=== PATIENT | female | born 1990 | race Two or more races ===

== ENCOUNTER 2024-10-15 21:00 | Emergency (ER) | payer MEDICAID, OTHER ==
[~2024-10-15] VITALS: Ht 157.5 cm; Wt 66.6 kg
--- NOTE | 2024-10-15 21:53 | ED.PDOC ---
History of Present Illness HPI Comments 34 year old female presents to the ED for the c/c of LLQ ABD pain, Left sided flank pain, Fever, DURAN, and N/V. Pt states that her symptoms have been onset for the past 2x days with no alleviating factors at this time. Pt states that she went to her PCP recently and has told that she had a form of a Kidney infection. No other associated symptoms, modifiers, recent injuries or sick contacts present at this time. Time Seen by MD: 21:49 Reviewed Notes: Nurses Notes, Medications, Allergies Allergies: Coded Allergies: Penicillins (Verified Allergy, Unknown, 10/15/24) Home Meds Active Scripts Ondansetron Odt 4MG Tab (ZOFRAN PO) 4 Mg Tb, 4 MG PO TIDPRN PRN for 3 Days, #9 TAB ODT TAB-DISSOLVE IN MOUTH, THEN SWALLOW Prov:JANET PANTOJA MD 10/16/24 Acetaminophen (Acetaminophen Er) 650 Mg Tab, 650 MG PO TIDPRN PRN for 5 Days, #1 5 TAB Prov:JANET PANTOJA MD 10/16/24 Sulfamethoxazole W/Trimethopri (Bactrim Ds Tablet) 1 Tab Tb, 1 TAB PO BID for 7 Days, #14 TAB Prov:JANET PANTOJA MD 10/16/24 Information Source: Patient Mode of Arrival: Ambulatory Severity: Moderate Timing: Days Duration: Since onset, Days Prehospital treatment: None Vital Signs Vital Signs Date Time Temp Pulse Resp B/P (MAP) Pulse Ox O2 Delivery O2 Flow Rate FiO2 10/16/24 02:47 100 18 107/75 (86) 98 10/15/24 22:51 98.3 98.3 Physical Exam General: Awake, alert and oriented. Mild acute distress. Skin: Skin in warm, dry and intact. Appropriate color for ethnicity. HEENT: The head is normocephalic and atraumatic. Conjunctivae are clear without exudates or hemorrhage. Sclera is non-icteric. EOM are intact. No signs of nystagmus. Eyelids are normal in appearance without swelling or lesions. Oral mucosa is pink and moist Neck: The neck is supple with normal range of motion. No JVD. Cardiac: Heart rate and rhythm are normal. No murmurs, gallops, or rubs are auscultated. Respiratory: No signs of respiratory distress. Lung sounds are clear in all lobes bilaterally without rales, rhonchi, or wheezes. Abdominal: Abdomen is soft, without distention, guarding or rigidity. Bowel sounds are present and normoactive in all four quadrants. Left flank and CVA Tenderness noted. Extremities: Upper and lower extremities are atraumatic in appearance without deformity or edema. Neurological: The patient is awake, alert and oriented to person, place, and time with normal speech. Speech is clear. There is no facial asymmetry. Psychiatric: Appropriate mood and affect. Good judgement and insight. Review of Systems: REVIEW OF SYSTEMS: No fever, no chills, or fatigue HEENT: No sore throat, no earache, no congestion, no neck pain. Cardiac: No chest pain. No palpitations. Lungs: No shortness of breath, no cough. GI: + nausea, + vomiting, no diarrhea, no constipation, + abdominal pain : No dysuria, frequency, or urgency. No hematuria. Musculoskeletal: No joint pain , no joint swelling, no extremity edema. Skin: No rash, no itching. Neuro: + headache, no dizziness, no weakness Past Medical History PAST MEDICAL HISTORY: Denies Surgical History: Denies all surgeries HALF SECTION IRONER History: No Pertinent HALF SECTION IRONER History Family History Family History: Reviewed,noncontributory to illness, No family hx of Cancer, No family hx of DM, No family hx of Heart yin, No family hx of HTN, No family hx ofKidney yin, No family hx of Liver yin, No family hx of Lung yin, No family hx of Stroke Social History Smoker: Non-Smoker Alcohol: Denies ETOH Use Drugs: Denies Drug Use Lives In: Home Was a procedure done? Was a procedure done?: No Differential Dx Considerations may include: Differential diagnoses considered include: Abdominal aortic aneurysm, CA, esophageal rupture, intestinal obstruction, mesenteric ischemia, perforated viscus or solid organ rupture, CHF with hepatomegaly, pneumonia, abscess, appendicitis, biliary disease, diverticulitis, gastritis, gastroenteritis, hep atitis, hernia, inflammatory bowel disease, pancreatitis, peptic ulcer disease, urinary tract infection, ureteral colic, constipation, GERD, irritable syndrome, abdominal wall pain, nonspecific abdominal pain, herpes zoster, nephrolithiasis. Also ruptured ectopic , ovarian torsion/cyst, tubo-ovarian abscess, PID, endometriosis, mittleschmerz. X-Ray, Labs, Meds, VS Vital Signs Date Time Temp Pulse Resp B/P (MAP) Pulse Ox O2 Delivery O2 Flow Rate FiO2 10/16/24 02:47 100 18 107/75 (86) 98 10/15/24 22:51 98.3 92 16 107/59 (75) 100 98.3 Lab Test 10/15/24 22:30 10/15/24 22:05 Range/Units Urine Color Light-orange Yellow Urine Clarity Ex.turbid Clear Urine pH 5.5 5.0-9.0 Urine Specific [place] 1.010 1.001-1.035 Urine Protein 1+ H Negative Urine Ketones Negative Negative Urine Blood 2+ H Negative /uL Urine Nitrite Negative Negative Urine Bilirubin Negative Negative Urine Urobilinogen Normal Negative mg/dL Urine Leukocyte Esterase 3+ Negative /uL Urine RBC 5 0 - 4 /hpf Urine WBC Clumps Present None Seen /hpf Urine Microscopic WBC 661 H 0-5 /HPF Urine Squamous Epithelial Cells Mod <5 /hpf Urine Bacteria Few H None Seen /hpf Urine Glucose Normal Normal mg/dL Urine Test Negative Negative White Blood Count 11.6 H 4.4-10.8 10^3/uL Red Blood Count 3.92 L 4.0-5.20 10^6/uL Hemoglobin 11.9 L 12.2-16.2 g/dL Hematocrit 34.4 L 36.0-46.0 % Mean Corpuscular Volume 87.8 80.0-100.0 fL Mean Corpuscular Hemoglobin 30.4 28.0-32.0 pg Mean Corpuscular Hemoglobin Concent 34.6 32.0-36.0 g/dL Red Cell Distribution Width 14.8 H 11.8-14.3 % Platelet Count 272 140-450 10^3/uL Mean Platelet Volume 8.5 6.9-10.8 fL Neutrophils (%) (Auto) 76.3 37.0-80.0 % Lymphocytes (%) (Auto) 9.3 L 10.0-50.0 % Monocytes (%) (Auto) 14.1 H 0.0-12.0 % Eosinophils (%) (Auto) 0.1 0.0-7.0 % Basophils (%) (Auto) 0.2 0.0-2.0 % Neutrophils # (Auto) 8.9 H 1.6-8.6 10 ^3/uL Lymphocytes # (Auto) 1.1 0.4-5.4 10 ^3/uL Monocytes # (Auto) 1.6 H 0-1.3 10 ^3/uL Eosinophils # (Auto) 0 0-0.8 10 ^3/uL Basophils # (Auto) 0 0-0.2 10 ^3/uL Nucleated Red Blood Cells 0.0 % Sodium Level 136 136-145 mmol/L Potassium Level 3.7 3.5-5.1 mmol/L Chloride Level 104 98-107 mmol/L Carbon Dioxide Level 23 20-31 mmol/L Anion Gap 9 5-15 Blood Urea Nitrogen 8 L 9-23 mg/dL Creatinine 0.81 0.550-1.02 mg/dL Glomerular Filtration Rate Calc 98 >90 mL/min BUN/Creatinine Ratio 9.9 L 10.0-20.0 Serum Glucose 106 74-106 mg/dL Calcium Level 9.9 8.7-10.4 mg/dL Lipase 30 12-53 U/L Current Medications Medications (Trade) Dose Ordered Sig/Lula Route Start Time Stop Time Status Last Admin Trimethoprim/ Sulfamethoxazole (Bactrim Ds Tablet) 1 tab ONCE ONCE PO 10/16/24 02:15 10/16/24 02:16 DC 10/16/24 02:44 PATIENT: KEREN IRENE ACCT: [id number] UNIT: [id number] : 1990 LOC: ER ROOM / BED: / AGE / SEX: 34 / F ADM STATUS: REG ER SERVICE 754 ORDERING PHYSICIAN: JANET PANTOJA MD PROCEDURE(s): ABPL - CT AB PEL WO CON-NO ORAL OR IV REASON: Left flank pain ORDER NUMBER(s): [id number], ACCESSION NUMBER(s): [id number] Exam: CT CT AB PEL WO CON-NO ORAL OR IV History: Left flank pain Comparison Study: None Technique: Multidetector spiral CT of the abdomen was performed from lung bases to pubic symphysis. Imaging was performed without IV contrast. Axial, coronal and sagittal multiplanar reformats were obtained from the axial data set by the technologist. Radiation Dose : 1. Abdomen/Pelvis: CTDIvol 5.25 mGy, DLP 263.29 mGy*cm. Findings: Evaluation of solid organs is limited due to lack of intravenous contrast use. Lung Bases: No acute or significant lung base finding. Normal heart size. No pleural or pericardial effusion. Liver: The liver is normal in size. No focal lesions. Gallbladder and Biliary Tree: Unremarkable Spleen: Unremarkable Pancreas: The pancreas is grossly normal in appearance. Adrenal Glands: Unremarkable Kidneys: Kidneys are grossly normal without calculi or hydronephrosis. 1.9 cm renal cortical cysts within the right inferior pole and left interpolar kidney. Bladder: Grossly unremarkable for degree of distention. Bowel: The stomach is grossly normal in appearance. Small bowel and colon are normal in caliber and distribution. The appendix is normal. Ascites: Absent Lymphadenopathy: No mesenteric, retroperitoneal or periportal lymphadenopathy. Abdominal Wall and Mesentery: Unremarkable. Vasculature: The visualized abdominal aorta is normal in size and caliber. Evaluation of abdominal and pelvic vessels is limited due to lack of intravenous contrast. Pelvic Organs: Unremarkable Musculoskeletal: No aggressive focal bony lesions, acute fractures or dislocation. IMPRESSION: 1. No acute abdominal or pelvic findings. Time of 1ST Reevaluation: 22:20 Reevaluation 1ST: Unchanged Patient Education/Counseling: Need For Follow Up Family Education/Counseling: Need For Follow Up Departure 1 Departure Time of Disposition: 02:04 Impression: Primary Impression: Flank pain Additional Impression: Urinary tract infection Disposition: 01 HOME / SELF CARE / HOMELESS Condition: Stable Additional Instructions: INSTRUCCIONES DE CAROL DE Urgencias Instrucciones: Shaila atentamente todas las instrucciones proporcionadas en jose ramon paquete. Aunque le hayan dado el carol del Departamento de Emergencias, esto no significa que tenga un "certificado de buena bell". [] Hoy no se duran realizado ningn diagnstico definitivo para crista sntomas. Es posible que ests en proceso de desarrollar chandu enfermedad grave. Es por eso que debe regresar al servicio de urgencias sin falta si presenta algn sntoma nuevo o que empeora (especialmente si crista sntomas incluyen dolor en el pecho, dificultad para respirar, dolor abdominal, fiebre, dolor de philip, confusin, dificultad para los o caminar). Tambin es muy importante que consulte a un mdico de atencin primaria dentro de los prximos 3 a 5 chavarria para realizar un seguimiento. Si no puede conseguir chandu james, regrese al servicio de urgencias para chandu nueva evaluacin. Educacin para el paciente: Infecciones de las vas urinarias en adultos (Conceptos Bsicos) ? Riones Son dos rganos con forma de frijol que filtran la dmitry para producir orina. ? Vejiga Es un rgano con forma de globo que almacena la orina. ? Urteres Son dos tubos que llevan la orina desde los riones a la vejiga. ? Uretra Es el tubo que lleva la orina desde la vejiga al exterior del cuerpo. Las infecciones en la vejiga son ms comunes que las infecciones en los riones. Se producen cuando entran bacterias en la uretra y se desplazan hacia arriba, hasta la vejiga. El trmino mdico para referirse a chandu infeccin en la vejiga es "cistitis". La mayora de las veces, cuando las personas hablan de chandu infeccin de las vas urinarias, se refieren a chandu infeccin de la vejiga. ? Las infecciones de rin ocurren cuando las bacterias se desplazan incluso ms arriba, hasta los riones. El trmino mdico para referirse a chandu infeccin en los riones es ? Tanto las infecciones en la vejiga radha en los riones son ms comunes en las personas de sexo femenino que en las de sexo masculino. El riesgo de infecciones de las vas urinarias tambin es mayor en personas que tienen un catter urinario. Un catter es un tubo dixon y flexible que drena orina de la vejiga. Podra usarse en personas hospitalizadas que no pueden orinar de manera normal. Cules son los sntomas de chandu infeccin en la vejiga? Los sntomas son, entre otros: Cules son los sntomas de chandu infeccin en el rin? Los sntomas de chandu infeccin en el rin pueden incluir los mismos sntomas urinarios que se presentan con chandu infeccin en la vejiga. Adems, las infecciones en el rin pueden causar: Es necesario que me realice pruebas? Cristian vez. Si piensa que podra tener chandu infeccin de las vas urinarias, llame a appiah mdico o enfermero. En ocasiones, puede determinar si usted tiene chandu infeccin de las vas urinarias con solo conocer crista sntomas. [place] mdico o enfermero podra hacerle chandu simple prueba de orina en el consul torio. Tambin es posible que le sonny chandu prueba de orina ms compleja para detectar bacterias. "pielonefritis". Es ms grave que chandu infeccin de la vejiga, y puede provocar otros problemas graves si no se trata adecuadamente. ? Dolor o ardor al orinar ? Necesidad de orinar con frecuencia ? Necesidad de orinar en forma repentina o urgente ? Dmitry en la orina ? Fiebre ? Dolor de espalda ? Nuseas o vmitos [employer] se tratan las infecciones de las vas urinarias? La mayora de las infecciones de las vas urinarias se tratan con pldoras de antibiticos. Actan matando los grmenes que causan la infeccin. Crista sntomas deberan mejorar al da siguiente de estar tomando antibiticos, cate debe terminar todas las pldoras. De lo contrario, la infeccin podra regresar. Si es necesario, tambin puede casimiro chandu medicina para anestesiar appiah vejiga. Esta medicina disminuye el dolor que causan las infecciones de las vas urinarias. Tambin reduce el deseo de orinar. Qu pasa si sufro infecciones frecuentes en la vejiga? Keith, consulte a appiah mdico o enfermero para verificar si realmente se trata de infecciones en la vejiga. Los sntomas de chandu infeccin en la vejiga pueden ser causados por otras cosas. El mdico o enfermero querr los si esos problemas pueden estar causando crista sntomas. Si appiah mdico confirma que usted tiene infecciones frecuentes, hay cosas que puede hacer para evitarlas. Por ejemplo: Otras cosas que podran ser tiles son: Si tiene chandu infeccin en la vejiga, probablemente tenga que casimiro antibiticos iker 3 a 7 chavarria. ? Si tiene chandu infeccin en los riones, probablemente necesite casimiro antibiticos ms tiempo. Algunas personas deben tomarlos iker 10 chavarria. Si tiene chandu infeccin en los riones, tambin es posible que necesite recibir tratamiento en el hospital. ? ? Beber ms lquido [place] puede ayudar a prevenir las infecciones en la vejiga. Estrgeno vaginal Si ya duran tenido la menopausia, el mdico podra sugerir jose ramon tratamiento. El estrgeno vaginal viene en forma de crema o anillo flexible que se coloca en la vagina. Puede ayudar a prevenir las infecciones en la vejiga. ? Evitar los espermicidas (cremas o geles que ramin el esperma) Los espermicidas son un mtodo de planificacin familiar. Al parecer, aumentan el riesgo de tener infecciones en la vejiga para algunas personas de sexo femenino, especialmente en aquellas que usan un ? Si tiene muchas infecciones en la vejiga y los mtodos anteriores no nixon dado resultado, hable con appiah mdico sobre qu ms puede hacer para prevenir las infecciones. Casimiro un antibitico todos los chavarria o despus de tener relaciones sexuales puede ayudar a prevenir infecciones en la vejiga. Sin embargo, el uso de antibiticos a rustam plazo tiene desventajas, por lo que generalmente los mdicos keith sugieren otros mtodos, radha por ejemplo: Pueden otros productos prevenir las infecciones en la vejiga? Algunas personas se preguntan sobre otros productos "naturales" que dicen ayudar a prevenir las infecciones en la vejiga, radha pldoras de probiticos, vitamina Cy D- manosa. No se cuenta con chandu prueba firme de que estos productos den resultado. Sin embargo, tampoco hay pruebas claras de que cecilio perjudiciales. Si tiene preguntas sobre estos u otros productos, hable con appiah mdico o enfermero. Si usa espermicidas y tiene muchas infecciones en la vejiga, podra ser conveniente que cambie a otro mtodo de planificacin familiar. Orinar despus de tener relaciones sexuales Algunos mdicos piensan que esto ayuda a expulsar los grmenes que pueden boom ingresado a la vejiga iker la relacin sexual. No hay evidencia de que esto funcione, cate tampoco puede hacer mela. ? Metenamina (brea comercial: Hiprex) Es chandu pldora que se karoline todos los chavarria. Modifica la orina para dificultar el crecimiento de bacterias. Funciona [place] turpin mahnaz radha los antibiticos para prevenir infecciones en la vejiga. ? Jugo de arndanos u otros derivados del arndano Podran ayudar a prevenir o tratar las infecciones en la vejiga, cate los mdicos no saben cul es la mejor dosis. e-Prescriptions Ondansetron Odt 4MG Tab (ZOFRAN PO) 4 Mg Tb 4 MG PO TIDPRN PRN for 3 Days, #9 TAB ODT TAB-DISSOLVE IN MOUTH, THEN SWALLOW Prov: JANET PANTOJA MD 10/16/24 Acetaminophen (Acetaminophen Er) 650 Mg Tab 650 MG PO TIDPRN PRN for 5 Days, #15 TAB Prov: JANET PANTOJA MD 10/16/24 Sulfamethoxazole W/Trimethopri (Bactrim Ds Tablet) 1 Tab Tb 1 TAB PO BID for 7 Days, #14 TAB Prov: JANET PANTOJA MD 10/16/24 Comments Patient well-appearing, nontoxic. Advised prompt follow-up with PCP, return to the ED with any new, worsening or concerning symptoms. Critical Care Note Critical Care Time?: No Stability Stability form required: No Heart Score Heart Score: Heart Score Response (Comments) Value History N/A 0 EKG N/A 0 Age N/A 0 Risk Factors N/A 0 Troponin N/A 0 Total 0 I personally scribed for JANET PANTOJA MD ([email or web address]) on 10/15/24 at 21:53. Electronically submitted by Julius Ahn ([email or web address]). I personally scribed for JANET PANTOJA MD ([email or web address]) on 10/16/24 at 01:58. Electronically submitted by Julius Ahn [email or web address]). JANET PANTOJA MD Oct 15, 2024 21:53
[2024-10-15 22:26] LABS: Basophils # (auto) 0 10 ^3/uL (0-0.2); Basophils % (auto) 0.2 % (0.0-2.0); Eosinophils # (auto) 0 10 ^3/uL (0-0.8); Eosinophils % (auto) 0.1 % (0.0-7.0); Hematocrit 34.4 % (36.0-46.0); Hemoglobin 11.9 g/dL (12.2-16.2); Lymphocytes # (auto) 1.1 10 ^3/uL (0.4-5.4); Lymphocytes % (auto) 9.3 % (10.0-50.0); Mean Corpuscular Hemoglobin 30.4 pg (28.0-32.0); Mean Corpuscular Hgb Conc. 34.6 g/dL (32.0-36.0); Mean Corpuscular Volume 87.8 fL (80.0-100.0); Monocytes # (auto) 1.6 10 ^3/uL (0-1.3); Monocytes % (auto) 14.1 % (0.0-12.0); Neutrophils # (auto) 8.9 10 ^3/uL (1.6-8.6); Neutrophils % (auto) 76.3 % (37.0-80.0); Platelet Count (auto) 272 10^3/uL (140-450); Red Blood Cells 3.92 10^6/uL (4.0-5.20); Red Cell Distribution Width 14.8 % (11.8-14.3); White Blood Cell 11.6 10^3/uL (4.4-10.8)
[2024-10-15 22:32] LABS: Chloride 104 mmol/L (98-107); Potassium 3.7 mmol/L (3.5-5.1); Sodium 136 mmol/L (136-145)
[2024-10-15 22:33] LABS: Anion Gap 9 (5-15); Carbon Dioxide 23 mmol/L (20-31)
[2024-10-15 22:34] LABS: Calcium 9.9 mg/dL (8.7-10.4)
[2024-10-15 22:39] LABS: BUN/Creatinine Ratio 9.9 (10.0-20.0); Lipase 30 U/L (12-53)
[2024-10-15 22:44] LABS: Blood Urea Nitrogen 8 mg/dL (9-23); Glucose 106 mg/dL (74-106)
[2024-10-15 22:51] VITALS: TEMP 98.3
--- NOTE | 2024-10-15 22:58 | DVH ---
Exam: CT CT AB PEL WO CON-NO ORAL OR IV History: Left flank pain Comparison Study: None Technique: Multidetector spiral CT of the abdomen was performed from lung bases to pubic symphysis. I maging was performed without IV contrast. Axial, coronal and sagittal multiplanar reformats were obta ined from the axial data set by the technologist. Radiation Dose : 1. Abdomen/Pelvis: CTDIvol 5.25 mGy, DLP 263.29 mGy*cm. Findings: Evaluation of solid organs is limited due to lack of intravenous contrast use. Lung Bases: No acute or significant lung base finding. Normal heart size. No pleural or pericardial effusion. Liver: The liver is normal in size. No focal lesions. Gallbladder and Biliary Tree: Unremarkable Spleen: Unremarkable Pancreas: The pancreas is grossly normal in appearance. Adrenal Glands: Unremarkable Kidneys: Kidneys are grossly normal without calculi or hydronephrosis. 1.9 cm renal cortical cysts wi thin the right inferior pole and left interpolar kidney. Bladder: Grossly unremarkable for degree of distention. Bowel: The stomach is grossly normal in appearance. Small bowel and colon are normal in caliber and d istribution. The appendix is normal. Ascites: Absent Lymphadenopathy: No mesenteric, retroperitoneal or periportal lymphadenopathy. Abdominal Wall and Mesentery: Unremarkable. Vasculature: The visualized abdominal aorta is normal in size and caliber. Evaluation of abdominal a nd pelvic vessels is limited due to lack of intravenous contrast. Pelvic Organs: Unremarkable Musculoskeletal: No aggressive focal bony lesions, acute fractures or dislocation. IMPRESSION: 1. No acute abdominal or pelvic findings. Radiation optimization: All CT scans at this facility use at least one of these dose optimization belle hniques: automated exposure control mA and/or kV adjustment per patient size (includes targeted exam s where dose is matched to clinical indication) or iterative reconstruction.
[2024-10-15 23:09] LABS: Urine Bacteria FEW /hpf (None Seen); Urine Blood 2+ /uL (Negative); Urine Clarity Ex.Turbid (Clear); Urine Color Light-Orange (Yellow); Urine Protein, UAD 1+ (Negative); Urine Squamous Epithelial Cell MOD /hpf (<5); Urine Urobilinogen Normal (Negative); Urine WBC 661 /HPF (0-5); Urine WBC Clumps PRESENT /hpf (None Seen); Urine pH 5.5 (5.0-9.0)
[2024-10-16] MEDS ORDERED: BACDST PO (02:05)
[2024-10-16] MEDS: ONDANSETRON ODT 4 MG TAB PO ONE (02:43)
[2024-10-16] MEDS: ACETAMINOPHEN 500 MG TAB or CAP PO ONE (02:43)
[2024-10-16] MEDS: SULFAMETHOX W/TRIMETH(800/160MG) DS TAB PO ONE (02:44)
[2024-10-16 02:47] VITALS: BP 107/75; PULSE 100; RESP 18; O2SAT 98
[2024-10-16] MEDS ORDERED: ZOFR4T PO (03:19)
[2024-10-16] MEDS ORDERED: ACET650T12 PO (03:19)
== END 2024-10-16 02:51 | disposition home or self-care (01) ==
LOC: ER 21:00 → EDBD 21:00 → ER 10-16 02:51
DX: N39.0 Urinary tract infection, site not specified (principal); R10.32 Left lower quadrant pain; Z88.0 Allergy status to penicillin; Z79.899 Other long term (current) drug therapy
CPT/HCPCS: 36415; 74176; 80048; 81001; 81025; 83690; 85025; 99284; Q0162